=== PATIENT | male | born 2005 | race African-American/Black ===

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

== ENCOUNTER → 2025-02-04 | Outpatient (CLI) | payer OTHER ==
[~2025-02-04] MED LIST changes: +TRAMADOL HCL50 MG PO
== END | disposition home or self-care (01) ==
LOC: CT 15:52
PROVIDERS: ATTEND Orthopaedic Surgery
DX: S42.035A Nondisplaced fracture of lateral end of left clavicle, initial encounter for closed fracture (principal); M25.512 Pain in left shoulder; X58.XXXA Exposure to other specified factors, initial encounter; Y93.89 Activity, other specified; Y92.89 Other specified places as the place of occurrence of the external cause; Y99.8 Other external cause status

== ENCOUNTER 2025-03-16 04:22 | Emergency (ER) | payer OTHER ==
[~2025-03-16] VITALS: Ht 180.3 cm; Wt 99.8 kg
[2025-03-16] MEDS ORDERED: Albuterol Sulf/Ipratropium 3 ML VIAL NEB ONE (04:45)
[2025-03-16] MEDS ORDERED: Dexamethasone Sodium Phospha 20 MG/5 ML VIAL IM ONE (04:50)
[2025-03-16] MEDS ORDERED: MEDROL DOSEPAK4 MG PO (05:41)
== END 2025-03-16 05:58 | disposition home or self-care (01) ==
LOC: ED 04:22
DX: J45.901 Unspecified asthma with (acute) exacerbation (principal)

== ENCOUNTER 2025-03-21 18:11 | Emergency (ER) | payer OTHER ==
[~2025-03-21] VITALS: Ht 180.3 cm; Wt 83.9 kg
[2025-03-21] MEDS ORDERED: Lidocaine Hydrochloride 5 ML AMP SC ONE (20:55)
== END 2025-03-21 21:39 | disposition home or self-care (01) ==
LOC: ED 18:11
DX: S01.511A Laceration without foreign body of lip, initial encounter (principal); F41.9 Anxiety disorder, unspecified; J45.909 Unspecified asthma, uncomplicated; Y04.0XXA Assault by unarmed brawl or fight, initial encounter; Y93.89 Activity, other specified; Y92.89 Other specified places as the place of occurrence of the external cause; Y99.8 Other external cause status

== ENCOUNTER 2025-04-20 19:05 | Emergency (ER) | payer SELFPAY ==
[2025-04-20] MEDS ORDERED: Lidocaine Hydrochloride 30 ML VIAL SC ONE (19:50)
[2025-04-20] MEDS ORDERED: CEPHALEXIN 500 MG CAP PO ONE (20:30)
[2025-04-20] MEDS ORDERED: CEPHALEXIN500 M1 PO (20:30)
== END 2025-04-20 20:33 | disposition home or self-care (01) ==
LOC: ED 19:05
DX: S21.211A Laceration without foreign body of right back wall of thorax without penetration into thoracic cavity, initial encounter (principal); J45.909 Unspecified asthma, uncomplicated; X58.XXXA Exposure to other specified factors, initial encounter; Y93.89 Activity, other specified; Y92.89 Other specified places as the place of occurrence of the external cause; Y99.8 Other external cause status